=== PATIENT | male | born 1980 | race Caucasian/White ===

== ENCOUNTER 2022-01-21 11:26 | Outpatient (CLI) | payer BC, SELFPAY ==
--- NOTE | ~2022-01-21 | XR_ITS ---
EXAMINATION: XR chest 2V 01/21/2022 11:44 INDICATION: Cough PROCEDURE: 2 view chest COMPARISON: No prior studies for comparison. FINDINGS: The lungs are clear. The cardiomediastinal silhouette is within normal limits. There are no pleural effusions. There is no pneumothorax suspected. IMPRESSION: 1: NO ACUTE CARDIOPULMONARY DISEASE. Reviewed, dictated and finalized at location B.
== END 2022-01-21 11:27 | disposition home or self-care (01) ==
LOC: ANHIMG 11:32
PROVIDERS: PCP Emergency Medicine; Visit Provider Emergency Medicine
DX: R05.9 Cough, unspecified (principal)
CPT/HCPCS: 71046

== ENCOUNTER → 2023-02-24 10:47 | Outpatient (CLI) | payer BC, SELFPAY ==
--- NOTE | ~2023-02-24 | US_ITS ---
US abdomen limited INDICATION: Elevated liver function tests. PROCEDURE: Realtime right upper abdominal ultrasound. COMPARISON: No prior studies for comparison. FINDINGS: The pancreas is normal without focal mass or pancreatic ductal dilation. There is hepatome zhang with fatty infiltration of the liver. There is normal directional flow in the portal vein. Gallbladder is surgically absent. Common bile duct measures 5 mm. No sonographic Morrissey's sign. IMPRESSION: 1: Hepatomegaly with fatty infiltration of the liver. Reviewed, dictated and finalized at location B. MING POOL SALESPERSON
== END ==
PROVIDERS: PCP Emergency Medicine; Visit Provider Emergency Medicine
DX: R74.8 Abnormal levels of other serum enzymes (principal); K76.0 Fatty (change of) liver, not elsewhere classified
CPT/HCPCS: 76705

== ENCOUNTER 2024-06-05 15:03 | Outpatient (CLI) | payer BC, SELFPAY ==
--- NOTE | ~2024-06-05 | XR_ITS ---
CHEST RADIOGRAPH, PA AND LATERAL CLINICAL HISTORY: COUGH X 2 WEEKS . COMPARISON: 01/21/2022 TECHNIQUE: PA and lateral views of the chest. FINDINGS The cardiomediastinal silhouette is unremarkable. The lungs are clear. Visualized osseous structures and soft tissues are unremarkable. IMPRESSION: No focal infiltrate or effusion. Reviewed, dictated and finalized at location A.
--- OUTSIDE RECORDS SUMMARY | 2024-06-05 17:09 | XMS_ITS | Patient Health Summary ---
Author Organization [facility] Address [address] [place] [address] Care Team Providers Care Gaming Worker Name Role Phone Unavailable Primary Care Provider Unavailabl e Note from [facility],non-owned Affiliates and Associated Physician Practices is amultiple site organization consisting of ambulatory clinics and hospital sitesin [place], [place], [place] and [place]. This disclosure is being madepursuant to the Care Everywhere program and may not contain all information available regarding this patient. Last updated 17.[facility] Social History Tobacco Use Types Packs/Day Years Used Date Smoking Tobacco: Never Assessed Sex and Gender Information Value Date Recorded Sex Assigned at Not on file Gender Identity Not on file Sexual Orientation Not on file Procedures * GROSS + MICRO EXAM(Performed 12/06/2004) Results * GROSS + MICRO EXAM (12/06/2004 12:00 AM CDT) Result CASE NUMBER [id number] Comment: ORDERING PHYSICIAN MARY LESTER SPECIMEN TYPE Gallbladder Surgeon DR. MARY LESTER Gross Exam MATT JOHNSON Gross Report COPY TO INDICATION FOR PROCEDURE CHOLECYSTITIS. OPERATION LAPAROSCOPIC/CHOLECYSTECTOMY GROSS THE SPECIMEN IS RECEIVED IN ONE CONTAINER, LABELED 'GALLBLADDER'. IT CONSISTS OF A 5 CM IN LENGTH AND 2 CM IN DIAMETER PREVIOUSLY OPENED RED NGUYEN GALLBLADDER. THE SEROSA IS CONGESTED, SMOOTH AND GLISTENING WITH SOME ATTACHED FAT. NO LYMPH NODE IS ASSOCIATED WITH THE SPECIMEN. THE LUMEN CONTAINS GREEN BILE. THERE ARE NO STONES IN THE LUMEN, LOOSE IN THE CONTAINER, OR LODGED IN THE CYSTIC DUCT OR NECK OF THE GALLBLADDER. THE GALLBLADDER WALL MEASURES 0.1 CM IN THICKNESS. THE MUCOSA IS GREEN NGUYEN AND SMOOTH. LABEL REMOVER SECTIONS ARE SUBMITTED IN 'A' AND 'B'. WITH THE CYSTIC DUCT MARGIN INCLUDED IN 'A'. LW/JUANC MICROSCOPIC EXAM MICROSCOPIC MICROSCOPIC EXAMINATION OF SECTIONS LABELED A AND B REVEAL STRIPS OF GALLBLADDER WALL WITH SECTIONS OF THE CYSTIC DUCT. THE GALLBLADDER MUCOSA DEMONSTRATES THE TYPICAL PAPILLARY PROJECTIONS SURFACED BY A COLUMNAR EPITHELIUM THAT SHOWS NO EVIDENCE OF ATYPIA. WITHIN THE LAMINA PROPRIA OF THE MUCOSAL PROJECTIONS ARE SCATTERED COLLECTIONS OF BENIGN XANTHOMA CELLS. THE GALLBLADDER WALL IS SLIGHTLY THICKENED AND VERY FEW CHRONIC INFLAMMATORY CELLS ARE PRESENT IN ALL LAYERS. NO MALIGNANT OR ATYPICAL FEATURES ARE SEEN. THE CYSTIC DUCT IS NOT REMARKABLE. RT/CS DIAGNOSIS DIAGNOSIS [1] GALLBLADDER -- CHRONIC CHOLECYSTITIS, MILD -- CHOLESTEROLOSIS RT/CS Released By WILLIE AMADOR CPT Code 22423 MISCELLANEOUS SAMPLE S / Unknown 12/06/2004 12/07/2004 7:14 AM CDT Historical Provider LAB - PATHOLOGY/C YTOLOGY ORDERABLES
--- OUTSIDE RECORDS SUMMARY | 2024-06-05 17:09 | XMS_ITS | Clinical Summary ---
Author Organization [facility] [address] Address [address] [place] [address] Care Team Providers Care Rn Teacher Name Role Phone Liam Medrano MD Primary Care Provider [phone] Allergies No known active allergies Medications amLODIPine (NORVASC) 5 mg tablet Take 5 mg by mouth daily. 02/28/2018 Active hydroCHLOROthiaz russell (MICROZIDE) 12.5 mg capsule Take 12.5 mg by mouth daily. 02/10/2018 Active lisinopril (PRINIVIL,ZESTRI L) 40 mg tablet Take 40 mg by mouth daily. 12/25/2017 Active pravastatin (PRAVACHOL) 40 mg tablet Take 40 mg by mouth daily. 02/10/2018 Active nebivolol (BYSTOLIC) 10 mg tablet Take 1 tablet (10 mg total) by mouth daily. 30 tablet 11 03/17/2018 Active Active Problems Problem Noted Date Diagnosed Date Controlled type 2 diabetes m ellitus without complication, without long-term current use of insulin 04/11/2018 Morbid obesity with BMI of 45.0-49.9, adult 02/25 ENMA (obstructive sleep apnea) 03/17/2018 Hypertriglyceridemia 03/17/2018 Mixed hyperlipidemia 03/17/2018 Essential hypertension 03/13/2018 Resolved Problems Problem Noted Date Diagnosed Date Resolved Date High blood sugar 03/13/2018 04/11/2018 Medical History Medical History Date Comments Hypertension Hyperlipidemia Family History Medical History Relation Name Comments Cancer Mother Relation Name Status Comments Father Alive Mother (Age Sixty-seven) B rain cancer Social History Tobacco Use Types Packs/Day Years Used Date Smoking Tobacco: Never Smokeless Tobacco: Never Tobacco Cessation:Counseling Given: Yes Personal Safety Answer Date Recorded Getting School Help Needed Not on file 06/02 Sex and Gender Information Value Date Recorded Sex Assigned at Not on file Legal Sex Male 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 BIOCHEMICAL ENGINEER Gender Identity Not on file Sexual Orientation Not on file Obstetrics History Last Filed Vital Signs Vital Sign Reading Time Taken Comments Blood Pressure 120/60 05/07/2018 6:53 PM BIOCHEMICAL ENGINEER Pulse 72 05/07/2018 6:53 PM BIOCHEMICAL ENGINEER Temperature 36.7 C (98 F) 05/07/2018 6:53 PM BIOCHEMICAL ENGINEER Respiratory Rate - - Oxygen Saturation 93% 05/07/2018 6:53 PM BIOCHEMICAL ENGINEER Inhaled Oxygen Concentration - - Weight 167.8 kg (370 lb) 05/07/2018 6:53 PM BIOCHEMICAL ENGINEER Height 185.4 cm (6' 1 ) 05/07/2018 6:53 PM BIOCHEMICAL ENGINEER Body Mass Index 48.82 05/07/2018 6:53 PM BIOCHEMICAL ENGINEER Plan of Treatment Not on file Insurance [employer] PPO [employer] P[employer] Care Teams Rn Teacher Relationship Specialty Start Date End Date Liam Medrano MD PCP - General Emergency Medicine 03/05/18
--- OUTSIDE RECORDS SUMMARY | 2024-06-05 17:09 | XMS_ITS | Referral Summary ---
Author Organization [facility] [address] Address [address] [place] [address] Care Team Providers Care Energy Conservation Engineer Name Role Phone Liam Medrano MD Primary Care Provider [phone] Allergies No known active allergies Medications amLODIPine [...] Resolved Date High blood sugar 03/13/2018 04/11/2018 Social History Tobacco Use Types Packs/Day Years Used Date Smoking Tobacco: Never Smokeless Tobacco: Never Tobacco Cessation:Counseling Given: Yes Personal Safety Answer Date Recorded Getting School Help Needed Not on file 06/02 Sex and Gender Information Value Date Recorded Sex Assigned at Not on file Legal Sex Male 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 SALES CONSULTANT Gender Identity Not on file Sexual Orientation Not on file Last Filed Vital Signs Vital Sign Reading Time Taken Comments Blood Pressure 120/60 05/07/2018 6:53 PM NATIONAL SALES CONSULTANT Pulse 72 05/07/2018 6:53 PM NATIONAL SALES CONSULTANT Temperature 36.7 C (98 F) 05/07/2018 6:53 PM NATIONAL SALES CONSULTANT Respiratory Rate - - Oxygen Saturation 93% 05/07/2018 6:53 PM NATIONAL SALES CONSULTANT Inhaled Oxygen Concentration - - Weight 167.8 kg (370 lb) 05/07/2018 6:53 PM NATIONAL SALES CONSULTANT Height 185.4 cm (6' 1 ) 05/07/2018 6:53 PM NATIONAL SALES CONSULTANT Body Mass Index 48.82 05/07/2018 6:53 PM NATIONAL SALES CONSULTANT Plan of Treatment Not on file Insurance [employer] PPO [employer] P[employer] Care Teams Energy Conservation Engineer Relationship Specialty Start Date End Date Liam Medrano MD PCP - General Emergency Medicine 03/05/18
--- OUTSIDE RECORDS SUMMARY | 2024-06-05 17:09 | XMS_ITS | Clinical Summary ---
Author Organization [facility] Address [address] [place] [address] Care Team Providers Care Drum Filler Name Role Phone Unavailable Primary Care Provider Unavailabl e Source Comments [facility],non-owned Affiliates and Associated Physician Practices is amultiple site organization consisting of ambulatory clinics and hospital sitesin [place], [place], [place] and [place]. This disclosure is being madepursuant to the Care Everywhere program and may not contain all information available regarding this patient. Last updated 17.[facility] Social History Tobacco Use Types Packs/Day Years Used Date Smoking Tobacco: Never Assessed Sex and Gender Information Value Date Recorded Sex Assigned at Not on file Gender Identity Not on file Sexual Orientation Not on file Plan of Treatment Health Maintenance Due Date Last Done Comments COLOGUARD (AGES 45-75) - COL ON CA SCREENING 1978 COLON MONITORING 1978 COLONOSCOPY - COLON CA SCREENING 1978 CT COLONOGRAPHY - COLON CA SCREENING 1978 Colorectal Cancer Screening 1978 FIT - COLON CA SCREENING 1978 FLEX SIG - COLON CA SCREENING 1978 LIPID TESTING 1978 HIV SCREENING 1993 HEPATITIS C SCREENING 07/19/1996 DTAP/TDAP/TD VACCINES (1 - Tdap) 1997 HEPATITIS B VACCINE (1 of 3 - 19+ 3-dose series) 1997 COVID-19 VACCINE ( - 2023-2 5 season) 2023 INFLUENZA VACCINE (#1) 2023 DEPRESSION SCREENING 03/27/2024 ZOSTER VACCINE (1 of 2) 2028 HIB VACCINE Aged Out No longer eligi ble based on patient's age to complete this topic HPV VACCINE Aged Out No longer eligi ble based on patient's age to complete this topic MENINGOCOCCAL (Group B) VACC INE SHARED DECISION-MAKING Aged Out No longer eligibl e based on patient's age to complete this topic MENINGOCOCCAL GROUPS A/C/Y/W VACCINE Aged Out No longer eligible b ased on patient's age to complete this topic PNEUMOCOCCAL VACCINE Aged Out No long er eligible based on patient's age to complete this topic
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
--- OUTSIDE RECORDS SUMMARY | 2024-06-05 17:09 | XMS_ITS | Referral Summary ---
Author Organization [facility] Address [address] [place] [address] Care Team Providers Care Bottle Booth Attendant Name Role Phone Unavailable Primary Care Provider Unavailabl e Source Comments [facility],non-owned Affiliates and Associated Physician Practices is amultiple site organization consisting of ambulatory clinics and hospital sitesin [place], [place], [place] and [place]. This disclosure is being madepursuant to the Care Everywhere program and may not contain all information available regarding this patient. Last updated 17.[facility] Social History Tobacco Use Types Packs/Day Years Used Date Smoking Tobacco: Never Assessed Sex and Gender Information Value Date Recorded Sex Assigned at Not on file Gender Identity Not on file Sexual Orientation Not on file Plan of Treatment Not on file
--- OUTSIDE RECORDS SUMMARY | 2024-06-05 17:09 | XMS_ITS | CONTINUITY OF CARE DOCUMENT ---
Author Name erinn gregorylaura Address Unknown Organization [facility] Address [address] [place] [address] Phone [phone] Care Team Providers Care Community Living Instructor Name Role Phone Jay Jay Doan MD Unavailable ALEXIS REDDY MD Unavailable [phone] ALEXIS REDDY MD Unavailable [phone] PROBLEMS Condition Status Date Provider Notes Hypertension active Jay Jay Doan MD Diabetes, Type 2 active Jay Jay Doan MD Hyperlipidemia active Jay Jay Doan MD Hypertriglyceridemia active Jay Jay Doan MD Shortness of breath active Jay Jay Doan MD ENMA - on CPAP active Jay Jay Doan MD Cardiomegaly? active Jay Jay Doan MD ENCOUNTERS Date Type Provider Location Encounter Diagnosis - In-person encounter Office Visit Jay Jay Doan MD [facility] - In-person encounter Office Visit Jay Jay Doan MD [facility] HypertensionDiabet es, Type 2HyperlipidemiaHyp ertriglyceridemiaS hortness of breathOSA - on CPAPCardiomegaly? VITAL SIGNS Date Observation Value Provider Body Mass Index (Ratio) 49.87 kg/m2 Zora Doan MD blood pressure, cuff size large Ja rret blood pressure, diastolic 84 mm[Hg] Ja rembertoet blood pressure, systolic 142 mm[Hg] Brayden kelsey oxygen saturation, oximetry 96 % Get respiratory rate E&M 16 /min Get pulse rate 88 /min Get weight E&M 378 [lb_av] Get height E&M 73 [in_i] Get Body Mass Index (Ratio) 50.39 kg/m2 Zora Doan MD blood pressure, cuff size regular [facility] blood pressure, diastolic 81 mm[Hg] [facility] blood pressure, systolic 141 mm[Hg] [facility] E&M 16 /min [facility] iller pulse rate 78 /min [facility] oxygen saturation, oximetry 96 % [facility] weight E&M 382 [lb_av] [facility] height E&M 73 [in_i] Cathie Em ALLERGIES No Known Drug Allergies HISTORY OF MEDICATION USE Medication Status Instructions Dates Provider Indications Com ments chlorthalidone 25 mg tablet active TAKE 1 TABLET BY MOUTH EVERY DAY Jay Jay Doan MD fenofibrate nanocrystallized 145 mg tablet active Cathie Em lisinopril 40 mg tablet active Cathie Em hydrochlorothiazide 12.5 mg capsule completed - Jay Jay Doan MD amlodipine 10 mg tablet active Cathie Em metformin 850 mg tablet active Cathie Em glipizide 5 mg tablet extended release 24hr active Cathie Em pravastatin 40 mg tablet active Cathie Em carvedilol 6.25 mg tablet active Cathie Em SOCIAL HISTORY Date Observation Value Provider smoking status Never smoker Jay Jay Doan MD smoking status Never smoker Jay Jay Doan MD INSURANCE PROVIDERS Payer name Policy type / Coverage type [place] red green party ID [facility] [id number] ADVANCE DIRECTIVES Name Date DISCUSSED - NO DECISION MADE TREATMENT PLAN Date Name Performer Cardiology Jay Jay Doan MD Cardiology:The elisabeth srivastava is on a statin and fenofibrate H is updated medication list for this problem includes: Fenofibrate Nanocrystallized 145 Mg Tablet (Fenofibrate nanocrystallized) Pravastatin 40 Mg Tablet (Pravastatin) Jay Jay Doan MD Cardiology:The elisabeth nt is using CPAP on a regular basis. The patient has been benefiting from therapy and should continue use. Jay Jay Doan MD Cardiology:Is on 4 m eds, and seems to be better controlled overall. B P today: 142/84 P rior BP: 141/81 (03/10/2023) Jay Jay Doan MD Cardiology:The elisabeth srivastava is on a statin H is updated medication list for this problem includes: Fenofibrate Nanocrystallized 145 Mg Tablet (Fenofibrate nanocrystallized) Pravastatin 40 Mg Tablet (Pravastatin) Jay Jay Doan MD Cardiology:on fibrat e H is updated medication list for this problem includes: Fenofibrate Nanocrystallized 145 Mg Tablet (Fenofibrate nanocrystallized) Pravastatin 40 Mg Tablet (Pravastatin) Jay Jay Doan MD Cardiology:Was infor med that he has cardiomegaly in the past, will check echo Jay Jay Doan MD Cardiology:encourage d lifestyle changes, diet changes, and weight loss A dded chlorthalidone 25mg once daily and stopped HCTZ 12.5mg once daily as chlorthalidone has longer half life than HCTZ B P today: 141/81 The following medications were removed from the medication list: Hydrochlorothiazide 12.5 Mg Capsule (Hydrochlorothiazide) His updated medication list for this problem includes: Chlorthalidone 25 Mg Tablet (Chlorthalidone) ..... Take 1 tablet by mouth every day Lisinopril 40 Mg Tablet (Lisinopril) Amlodipine 10 Mg Tablet (Amlodipine) Carvedilol 6.25 Mg Tablet (Carvedilol) Jay Jay Doan MD Cardiology:The patie nt is using CPAP on a regular basis. The patient has been benefiting from therapy and should continue use. Jay Jay Doan MD Cardiology:recommend GLP-1 agonist for both weight loss and Diabetes control Jay Jay Doan MD Cardiology:check echo Jay Jay garber MD Date Name BASIC METABOLIC PANE L W/EGFR Complete Echo
--- OUTSIDE RECORDS SUMMARY | 2024-06-05 17:09 | XMS_ITS | Clinical Summary ---
Author Organization [facility] Address [address] [place] [id number] Care Team Providers Care Taxi Servicer Name Role Phone Unavailable Primary Care Provider Unavailabl e Social History Tobacco Use Types Packs/Day Years Used Date Smoking Tobacco: Never Assessed Sex and Gender Information Value Date Recorded Sex Assigned at Not on file Legal Sex Male 10:03 PM [employer] Gender Identity Not on file Sexual Orientation Not on file Plan of Treatment Health Maintenance Due Date Last Done Comments Colorectal Cancer Screening Colonoscopy (10 Years) 1978 Annual Physical 1981 Hepatitis C 1996 DTaP, Tdap and Td Vaccines ( 1 - Tdap) 1997 Hepatitis B Vaccines (1 of 3 - 19+ 3-dose series) 1997 COVID-19 Vaccine (2023-2 5 season) 2023 Influenza Adult (#1) 2023 HPV Vaccines Aged Out No longer eligi ble based on patient's age to complete this topic Meningococcal B Vaccine Aged Out No l onger eligible based on patient's age to complete this topic Meningococcal Vaccine Aged Out No marisela raul eligible based on patient's age to complete this topic Pneumococcal Vaccine: Pediat rics (0 to 5 Years) and At-Risk Patients (6 to 64 Years) Aged Out No longer eligible b ased on patient's age to complete this topic RSV Immunizations Under 20 Months Aged Out No longer eligible based on patient's age to complete this topic
== END 2024-06-05 15:04 | disposition home or self-care (01) ==
LOC: ANHIMG 15:07
PROVIDERS: PCP Emergency Medicine; Visit Provider Emergency Medicine
DX: R05.9 Cough, unspecified (principal)
CPT/HCPCS: 71046